=== PATIENT | male | born 1990 | race Hispanic/Latino ===

== ENCOUNTER 2022-05-12 15:22 | Emergency (ER) | payer SELFPAY ==
[2022-05-12] MEDS ORDERED: Lidocaine 1% MPF 2 ML VIAL ONE (17:11)
[2022-05-12] MEDS ORDERED: Lidocaine 1% PF 5 ML VIAL ONE (17:58)
[2022-05-12] MEDS ORDERED: Bacitracin 1 PK ONE (18:35)
== END 2022-05-12 18:50 | disposition home or self-care (01) ==
LOC: ERS 15:22
DX: S62.637B Displaced fracture of distal phalanx of left little finger, initial encounter for open fracture (principal); F17.210 Nicotine dependence, cigarettes, uncomplicated; W22.09XA Striking against other stationary object, initial encounter; Y99.0 Civilian activity done for income or pay
CPT/HCPCS: 12001